=== PATIENT | female | born 1965 | race Hispanic/Latino ===

== ENCOUNTER 2018-10-09 07:39 | Day surgery (SDC) | payer OTHER ==
[~2018-10-09 07:39] MED LIST: DIPRIVAN 10 MG/ML IV ONE
[2018-10-09] MEDS ORDERED: NACL 0.9% 1000 ML 1,000 ML IV SCH (08:00)
--- NOTE | 2018-10-09 09:18 | Anesthesia Day of Surgery ---
Anesthesia Day of Surgery - Day of Surgery Patient Examined: Yes Patient H&P Reviewed: Yes Patient is NPO: Yes Carlos's Test: N/A
--- NOTE | 2018-10-09 09:19 | Anesthesia Consultation ---
Anesthesia Consult and Med Hx - Airway Anesthetic Teeth Evaluation: Good ROM Head & Neck: Adequate Mental/Hyoid Distance: Adequate Mallampati Class: Class I Intubation Access Assessment: Good - Pulmonary Exam CTA: Yes - Cardiac Exam Cardiac Exam: RRR - Pre-Operative Health Status ASA Pre-Surgery Classification: ASA1 Proposed Anesthetic Plan: General
[2018-10-09] MEDS ORDERED: XYLOCAINE 2% UROJET ONE (09:53)
--- NOTE | 2018-10-09 10:12 | Procedure Note ---
Date of procedure: 10/09/18 Pre-op diagnosis: Colon Polyp Screening/Hematochezia Post-op diagnosis: other (Multiple colon Polyps/ No Diverticular Disease noted/ Moderate Internal Hemorrhoid (cause of the Hematochezia-Bandingx 4)) Procedure: Colonoscopy with Cold Biopsy and Snare Polypectomy and use of Park Net to retrieve a polyp/ Flex with Banding x 4 Anesthesia: MAC Surgeon: DANIEL ECHAVARRIA Estimated blood loss: minimal Pathology: list Specimen disposition: to lab Condition: stable Disposition: same day (Avoid aspirin and NSAID for 5 days. follow up in 1 to 2 weeks ([phone]).)
--- NOTE | 2018-10-09 10:41 | Operative Report ---
PROCEDURE: Colonoscopy with snare polypectomy and cold biopsy and application of the snare polypectomy's tip as a heater probe. INDICATIONS FOR PROCEDURE: This is a 53-year-old white female originally from [place], who has a history of smoking and a family history of her father having lymphoma, who had presented with hematochezia and for colon polyp screening. DESCRIPTION OF PROCEDURE: Procedure was done after getting informed consent with MAC anesthesia. Instrument was passed through the rectum onto the cecum, which was identified by the ileocecal valve and the appendiceal orifice. Visualization was fair to good. In the proximal ascending colon, there was a 10-12 mm sessile polyp that was removed by snare excision and retrieved with a Park net. The remaining part of the proximal colon, transverse colon showed normal mucosa as did the descending colon. In the sigmoid, there were 3 polyps, 2 that were burned with the tip of the polypectomy snare and the other that there was used cold polypectomy without using the heat and were retrieved. In addition, there were several polyps in the rectosigmoid area that were removed by cold biopsy and some of the p[olyps were burnt by using the tip of the snare polypectomy and the rectum showed moderate internal hemorrhoids possible cause of the patient's hematochezia which required flexible sigmoidoscopy with banding. ASSESSMENT: Colon polyp screening, multiple polyps noted, one in the ascending colon that was removed by snare polypectomy and retrieved with a Park net and also in the sigmoid colon that was removed by cold snare polypectomy and retrieved, several that were burned and the rectosigmoid polyps, possibly hyperplastic, removed with cold biopsy and also being burned and moderate internal hemorrhoids. There was minimal bleeding from the biopsy sites. No complications associated with the procedure. PLAN: The patient needs to have a flexible sigmoidoscopy with banding done and asked to follow up in the office in 1-2 weeks' time. The procedure was done in the GI lab with the assistance of the GI lab team including RN, Mallory Estevez was there throughout the entirety of the procedure. JOB# [id number] ROYA/KIKO LEON
[2018-10-09 10:44] VITALS: BP 135/90
--- NOTE | 2018-10-09 10:51 | Operative Report ---
PROCEDURE: Flexible sigmoidoscopy with banding. INDICATIONS FOR THE PROCEDURE: This is a 53-year-old white female originally from [place], who had a colonoscopy done as part of colon polyp screening. She also had some complaints of hematochezia. Colonoscopy had showed multiple polyps that were removed. Flexible sigmoidoscopy was done to treat moderate internal hemorrhoid that was causing her hematochezia. DESCRIPTION OF PROCEDURE: The procedure was done after getting informed consent. She was noted to have a sentinel tag in the initial rectal exam, the instrument was lubricated and passed and retroflexed, four of the largest hemorrhoids were then suctioned into the suction channel and a rubber band was applied for ligation for each of these 4 hemorrhoids. There was minimal bleeding associated with the procedure. No complications associated with the procedure. At the end of the procedure, lidocaine gel was applied over the banded hemorrhoids. ASSESSMENT: Hematochezia secondary to moderate internal hemorrhoids, status post banding x4. Application of lidocaine gel at the end of the procedure, there was minimal bleeding associated with the procedure. No complications associated with the procedure. If the patient has pain, then analgesics will be prescribed. The patient will be asked to follow up in the office in 1-2 weeks' time and avoid aspirin and aspirin-related products for the next few days. RNMallory was in the room along with the GI team during the entirety of the procedure. JOB# [id number] ROYA/KIKO
== END 2018-10-09 07:40 | disposition home or self-care (01) ==
LOC: GIO 07:39
DX: K63.5 Polyp of colon (principal); K62.1 Rectal polyp; K64.8 Other hemorrhoids; F17.210 Nicotine dependence, cigarettes, uncomplicated; E78.00 Pure hypercholesterolemia, unspecified; Z90.710 Acquired absence of both cervix and uterus; Z79.899 Other long term (current) drug therapy; Z98.890 Other specified postprocedural states; Z98.82 Breast implant status
CPT/HCPCS: 45380; 45385; 46221; 88305; J2704; J7030